=== PATIENT | female | born 1985 | race Caucasian/White ===

== ENCOUNTER 2016-12-23 16:59 | Outpatient (CLI) | payer OTHER ==
[~2016-12-23 16:59] MED LIST: CHOL100010 PO; PRENTAB26 PO
== END 2016-12-23 17:55 | disposition home or self-care (01) ==
LOC: C.LD 16:59 → C.OPB 16:59
PROVIDERS: ATTEND Obstetrics & Gynecology
DX: O36.8120 Decreased fetal movements, second trimester, not applicable or unspecified (principal); Z3A.27 27 weeks gestation of pregnancy

== ENCOUNTER → 2016-12-29 | Outpatient (CLI) | payer OTHER ==
[2016-12-29 11:19] LABS: HEMATOCRIT 37.5 % (37-47)
[2016-12-29 11:56] LABS: URINE APPEARANCE CLOUDY (CLEAR); URINE BILIRUBIN NEG (NEG); URINE COLOR YELLOW; URINE EPITHELIAL CELL AUTO >30 /lpf (0-5); URINE NITRITE NEG (NEG); URINE SPECIFIC GRAVITY 1.014 (1.000-1.030); UROBILINOGEN NEG (NEG)
[2016-12-29 12:28] LABS: MANUAL MICROSCOPIC REQUIRED? NO; REVIEW REQ? NO
[2016-12-29 12:58] LABS: GTGD 50 Grams
== END | disposition home or self-care (01) ==
LOC: C.LAB1850 09:56
PROVIDERS: ATTEND Obstetrics & Gynecology
DX: O09.03 Supervision of pregnancy with history of infertility, third trimester (principal)

== ENCOUNTER → 2017-01-03 | Outpatient (CLI) | payer OTHER | END | disposition home or self-care (01) | LOC: C.LAB 08:16 | PROVIDERS: ATTEND Obstetrics & Gynecology | DX: O28.1 Abnormal biochemical finding on antenatal screening of mother (principal) ==

== ENCOUNTER → 2017-02-23 | Outpatient (CLI) | payer OTHER | END | disposition home or self-care (01) | LOC: C.LABSPEC 13:02 | PROVIDERS: ATTEND Obstetrics & Gynecology | DX: O09.03 Supervision of pregnancy with history of infertility, third trimester (principal) ==

== ENCOUNTER 2017-03-15 00:44 | Inpatient (IN) | payer OTHER ==
[~2017-03-15] VITALS: Ht 172.7 cm; Wt 73.6 kg
[2017-03-15] MEDS ORDERED: LACTATED RINGER'S 1000ML 1,000 ML IV SCH (01:34)
[2017-03-15] MEDS ORDERED: LACTATED RINGER'S 1000ML 1,000 ML IV PRN (01:34)
[2017-03-15 01:40] VITALS: Ht 172.7 cm; Wt 73.6 kg
[2017-03-15] MEDS ORDERED: MISOPROSTOLTAB 50 MCG TAB PO STA (01:44)
[2017-03-15 01:52] LABS: HEMATOCRIT 36.6 % (37-47); MEAN CELL VOLUME 97.9 fL (80-100); MEAN CORPUSCULAR HEMOGLOBIN 34.8 pg (25-34); MEAN CORPUSCULAR HGB CONC 35.5 g/dl (32-36); PLATELET COUNT 203 K/uL (130-400); RED BLOOD COUNT 3.74 M/uL (4.2-5.4); WHITE BLOOD COUNT 11.23 K/uL (4.8-10.8)
[2017-03-15] MEDS ORDERED: BUPIVACAINE 0.25% 30 ML VIAL ONE (06:17)
[2017-03-15] MEDS ORDERED: FENTANYL CITRATE INJ 50 MCG/1 ML 2 ML VIAL ONE (06:17)
[2017-03-15] MEDS ORDERED: EpHEDrine SULFATE INJ 50 MG/ML AMP ONE (06:17)
[2017-03-15] MEDS ORDERED: FENTANYL 2MCG/ML ROPIV 1.25MG/ML 100ML BAG EPI ONE (06:17)
[2017-03-15] MEDS ORDERED: LACTATED RINGER'S 1000ML 500 ML IV PRN ×2 (07:23→07:44)
[2017-03-15] MEDS ORDERED: OXYTOCIN 30 UNITS/500ML NSS IV PRN ×2 (07:30→11:00)
[2017-03-15] MEDS ORDERED: NALOXONE HCL INJ 1 MG in SODIUM CHLORIDE 0.9% 1000ML 1,000 ML IV PRN (07:44)
[2017-03-15] MEDS ORDERED: NALOXONE HCL INJ 0.4 MG/1 ML VIAL/CARP IV PRN (07:45)
[2017-03-15] MEDS ORDERED: NALBUPHINE HCL INJ 10 MG/ML AMP IV PRN (07:45)
[2017-03-15] MEDS ORDERED: FENTANYL 2MCG/ML ROPIV 1.25MG/ML 100ML BAG EPI PRN (07:45)
[2017-03-15] MEDS ORDERED: DiphenhydrAMINE HCL 50 MG/ML VIAL IV PRN (07:45)
[2017-03-15] MEDS ORDERED: EpHEDrine SULFATE INJ 50 MG/ML AMP IV PRN (07:45)
[2017-03-15] MEDS ORDERED: SUPERCREAM 0.870 % 15GM JAR EXT PRN (11:00)
[2017-03-15] MEDS ORDERED: LANOLIN OINT EXT PRN ×2 (11:00)
[2017-03-15] MEDS ORDERED: ACETAMINOPHEN/CODEINE 300/30MG TAB PO PRN ×2 (11:00)
[2017-03-15] MEDS ORDERED: HYDROCORTISONE ACETATE 25 MG SUPP PR PRN (11:00)
[2017-03-15] MEDS: CEFAZOLIN IV 1,000 MG in DEXTROSE 5% 50ML 50 ML IV SCH ×2 (11:44→19:59)
--- NOTE | 2017-03-15 12:43 | Anesthesia Procedure Note ---
Anesthesia Epidural Removal Nt Date & Time Mar 15, 2017 at 12:41 Vital Signs Pain Intensity: 0.0 Notes Mental Status: alert / awake / arousable, participated in evaluation Nausea / Vomiting: adequately controlled Pain: adequately controlled Airway Patency, RR, SpO2: stable & adequate BP & HR: stable & adequate Hydration State: stable & adequate Neuraxial Anesthesia: was administered Anesthetic Complications: no major complications apparent, pt satisfied with anesthetic care Epidural: removed without complications, with tip intact
--- NOTE | 2017-03-15 13:38 | DELIVERY SUMMARY ---
DATE OF OPERATION: 03/15/2017 DELIVERING SURGEON: Dr. Lopez. PREDELIVERY DIAGNOSES: 1. A 32-year-old G3, P1-0-1-1 at 39 weeks 1 day. 2. Premature rupture of membranes. 3. resulting from in vitro fertilization. POSTDELIVERY DIAGNOSES: Same. PROCEDURE: Spontaneous vaginal delivery. ANESTHESIA: Epidural. ESTIMATED BLOOD LOSS: 300 mL. FINDINGS: Viable male with Apgars 8 and 9. Weight pending. DESCRIPTION OF DELIVERY: The patient progressed to complete with epidural anesthesia. She then spontaneously vaginally delivered a viable male in the left occiput anterior position. The head delivered and then restituted to right occiput anterior position. The anterior shoulder delivered, followed by the posterior shoulder, followed by the body. No nuchal cord was noted. The baby was placed on mother's abdomen where a spontaneous cry was heard. Delayed cord clamping was performed and after 1 minute, the cord was doubly clamped and cut. Cord blood was obtained. The perineum was inspected and a second degree perineal laceration was noted and repaired in standard fashion with 3-0 Vicryl. During attempt to vaginally deliver placenta, the placenta avulsed and therefore the remaining placental fragments removed via manual extraction. A sweep of the uterus and vagina revealed no remaining placental fragments or clots or debris. The placenta was sent to pathology for further evaluation. The uterus became firm. Pitocin was given. Excellent hemostasis was noted. Rectal exam revealed no stitches in the rectum. The patient and the baby tolerated the delivery well. I attest to the content of the Intraoperative Record and any orders documented therein. Any exceptions are noted below. MTDCharity
[2017-03-15 15:15] VITALS: BP 120/69; PULSE 67; TEMP 36.4
[2017-03-15] MEDS ORDERED: NURSING VERBAL MED ORDER ONE (15:30)
[2017-03-15] MEDS: BENZOCAINE 20% AER SPR 82.5 GM CAN EXT PRN (15:50)
[2017-03-15] MEDS ORDERED: IBUPROFEN 600 MG TAB ONE (15:50)
[2017-03-15] MEDS: DOCUSATE SODIUM 100 MG CAP PO SCH (19:59)
[2017-03-15] MEDS: IBUPROFEN 600 MG TAB PO PRN (19:59)
[2017-03-15 20:00] VITALS: BP 114/66; PULSE 61; TEMP 36.6
[2017-03-16 00:45] VITALS: BP 103/64; PULSE 62; TEMP 36.5
[2017-03-16] MEDS: IBUPROFEN 600 MG TAB PO PRN ×5 (00:58→20:14)
[2017-03-16] MEDS: CEFAZOLIN IV 1,000 MG in DEXTROSE 5% 50ML 50 ML IV SCH (03:46)
[2017-03-16 03:50] VITALS: BP 104/55; PULSE 58; TEMP 36.6
[2017-03-16 07:29] LABS: HEMATOCRIT 36.1 % (37-47)
[2017-03-16 08:00] VITALS: BP 109/64; PULSE 60; TEMP 36.4
[2017-03-16] MEDS: DOCUSATE SODIUM 100 MG CAP PO SCH ×2 (08:26→20:03)
--- NOTE | 2017-03-16 09:09 | Progress Note ---
Subjective Mar 16, 2017. Subjective conversation w/ patient, physical exam, lab review Ambulation: ambulating normally Voiding: no voiding problems Passing Gas: Yes Diet Tolerance: Regular Diet Lochia: Moderate Feeding Type: Breast Feeding Pain: denies pain Comment: Patient was seen at the bedside. No acute event overnight. Review of Systems Constitutional: No fever Respiratory: No cough, No shortness of breath Cardiac: No chest pain Breast: No breast lump Abdomen: No nausea, No pain Female : No dysuria Denies headache Objective Vital Signs Date Time Temp Pulse Resp B/P Pulse Ox O2 Delivery O2 Flow Rate FiO2 03/16/17 08:00 36.4 60 16 109/64 Room Air 03/16/17 03:50 36.6 58 18 104/55 Room Air 03/16/17 00:45 Room Air 03/16/17 00:45 36.5 62 20 103/64 Room Air 03/15/17 20:00 36.6 61 20 114/66 Room Air 03/15/17 15:15 36.4 67 20 120/69 Room Air 03/15/17 15:15 Room Air Physical Exam General Appearance: WELL-APPEARING, WD/WN, NO APPARENT DISTRESS Respiratory/Chest: chest non-tender, lungs clear, normal breath sounds Cardiovascular: regular rate, rhythm Abdomen: normal bowel sounds, non tender, soft Fundus: Firm, Relation to Umbilicus (1-2cm below) Extremities: non-tender, no pedal edema, no calf tenderness Laboratory Results Last 24 Hours Test 03/16/17 06:53 Hemoglobin 12.5 g/dL Hematocrit 36.1 % Medications Current Inpatient Medications Medications (Trade) Dose Ordered Sig/Attila Route Start Time Stop Time Status Last Admin Dose Admin Oxytocin (Pitocin IV) 30 units UD PRN IV 03/15/17 11:00 04/14/17 10:59 Benzocaine (Dermoplast Aero Spr) 1 appln PRN PRN EXT 03/15/17 11:00 04/14/17 10:59 03/15/17 15:50 82.5 APPLN Cocaine HCl (Supercream 0.870% Cr) BID PRN EXT 03/15/17 11:00 03/29/17 10:59 03/15/17 15:50 15 GM Hydrocortisone Acetate (Anusol Hc Supp) 25 mg BID PRN TX 03/15/17 11:00 04/14/17 10:59 Lanolin (Lanolin Oint) PRN PRN EXT 03/15/17 11:00 04/14/17 10:59 Acetaminophen/ Codeine Phosphate (Tylenol w/ Codeine #3 Tab) 1 tab Q4H PRN PO 03/15/17 11:00 04/14/17 10:59 Acetaminophen/ Codeine Phosphate (Tylenol w/ Codeine #3 Tab) 2 tab Q4H PRN PO 03/15/17 11:00 04/14/17 10:59 Bisacodyl (Dulcolax Tab) 5 mg 20 PO 03/16/17 20:00 03/16/17 23:59 Docusate Sodium 100 mg 100 mg BID PO 03/15/17 20:00 04/14/17 19:59 03/16/17 08:26 100 MG Cefazolin Sodium/ Dextrose (Ancef Iv/D5 50ml) 55 ml @ 100 mls/hr Q8H IV 03/15/17 12:00 03/16/17 11:59 03/16/17 03:46 100 MLS/HR Ibuprofen (Motrin Tab) 600 mg Q4H PRN PO 03/15/17 16:00 04/14/17 15:59 03/16/17 06:05 600 MG Assessment and Plan Post- Day#: 1 Continue Routine Care: A/P: This is a 32 y/o female, , s/p normal vaginal delivery. She is ambulating and clinically stable. Plan: - Vitals signs are reviewed and WNL (Tmax 36.6 ) - Last Hgb is 12.5 - Blood type A+, GBS neg, Rubella Immune - Routine care - Encourage ambulation, monitor and control pain with medication as needed , continue with regular diet as tolerated and monitor lochia - Stool softeners and sitz bath recommended - Encourage breast feeding and educate about breast feeding Resident Physician Supervision Note: I was present with Dr. Quinones during the history and exam. I discussed the case with the resident and agree with the findings and plan as documented in the note. Any exceptions or clarifications are listed here: PPD#1 . Doing well. Anticipate DC home tomorrow. Documented By: Angélica Lopez
[2017-03-16 15:45] VITALS: BP 116/65; TEMP 36.7
[2017-03-16] MEDS ORDERED: BISACODYL 5 MG TABEC PO SCH (20:00)
[2017-03-16 23:00] VITALS: BP 115/61; PULSE 62; TEMP 36.7; O2SAT 97
--- NOTE | 2017-03-17 06:35 | Discharge Instructions ---
Discharge Instructions Date of Service Mar 15, 2017. Admission Reason for Admission: LABOR Discharge Discharge Diagnosis / Problem: s/p normal vaginal delivery Discharge Goals Goal(s): Routine recovery after delivery Medications Continue Dispensed Medications: supercream, dermaplast, tucks, lansinoh Activity Recommendations Activity Limitations: as noted below . Instructions / Follow-Up Instructions / Follow-Up ACTIVITY RECOMMENDATIONS: * Gradual return to full activity over the next 2-3 weeks. * No lifting - nothing heavier than baby over the next 2-3 weeks. * Do not engage in vigorous exercise, sexual activity or sports until cleared by your physician. * Do not drive or operate any motorized equipment until cleared by your physician. * You may shower/bathe daily. MEDICATIONS: For discomfort or pain, you may use Acetaminophen (Tylenol), Ibuprofen (Advil), or Naproxen (Aleve) following the package directions. For constipation you may use Colace following the package directions. BREAST CARE: If you are not breast feeding: * Wear a supportive bra 24 hours a day for one to two weeks. * Avoid stimulating your breasts and nipples as much as possible during the first few weeks after delivery. * When taking a shower, have the warm water hit your back, not breasts. * When your breasts feel full, apply ice packs. Usually three to four times a day helps ease the discomfort. * Take a mild pain medication (Tylenol / Motrin) when you are uncomfortable. If breast feeding: * Use breast milk to lubricate nipples. Lansinoh cream may be used for sore nipples. You do not need to remove cream prior to breast feeding. If using a different brand of cream, check the label for directions regarding removal of cream prior to nursing. * Wear a supportive bra. * If having problems with breasts or breast feeding, call a clothing consultant or your health care provider. EPISIOTOMY CARE: After delivery, if you have an episiotomy (stitches), the following steps will ease discomfort and aid healing. * For the first 24 hours after delivery, place ice packs next to your episiotomy to help reduce swelling. * After the first 24 hour-period, sitz baths, either portable or in the tub, are suggested. A shower with a shower arm sprayed over the episiotomy may be comforting. * Jody care should be done after each voiding and bowel movement. Squirt warm water from a plastic bottle over the perineum (region of the body between the anus and urinary opening) and pat dry. * Use Dermoplast to ease discomfort. Shake container. [place] directly over the episiotomy. Place a Tucks on a clean sanitary pad next to your episiotomy. SPECIAL CARE INSTRUCTIONS: When you are discharged from the hospital, it is important for you to follow the instructions listed below: * During the first week at home, you should be able to care for yourself and your baby. In addition, the usual light household activities are encouraged. * Limit your activities to the way you feel. Do not try to clean the house or move furniture. Be sensible. * If you actively engage in sports and have done so up until the time of your delivery, you may resume these activities as soon as you feel able. This may take up to one month or even longer. Use good judgment. * Continue to take your vitamins for at least six weeks after the of your baby. * Your diet need not be limited unless you were on a special diet before your delivery. Breast-feeding mothers need around 2500 calories per day and at least 64-80 ounces of fluid per day (8 to 10 glasses). * You should eat foods from the four major food groups. Crash diets or fad diets are to be avoided. Eating lean meats, fresh fruits and vegetables, low-fat dairy products, high fiber foods and a regular exercise program, will help you get back to your pre- weight without putting your health at risk. * Constipation is sometimes a problem after delivery. Take a mild laxative as needed. If breast feeding, Milk of Magnesia is acceptable to use. You may use a suppository or Fleets enema if no episiotomy. * A daily shower or tub bath is suggested. Be sure to thoroughly and gently dry the perineum. * A bloody vaginal discharge will usually continue until around four weeks post . A small amount of bleeding may continue for as long as six weeks. Vaginal discharge changes from the bright red bleeding after delivery to pink then brownish and finally yellowish-pink before becoming white and disappearing. * Bleeding may increase with activity. Your first period may come in 4-8 weeks. If you are breast feeding, your period may be delayed even longer. * [place] (sex) can begin whenever both you and your partner feel comfortable and do not have any form of genital infection. It is recommended that you wait at least six weeks for internal and external healing to occur. If you have questions, please talk to your health care practitioner. A condom should be used to prevent infection and . * Foreplay, gentle intercourse and lubrication is very important the first several times to prevent pain. A water-based lubricant such as K-Y jelly or Astroglide may be used. * If you have RH negative blood and your baby is RH positive, you will receive RHOGAM by injection prior to discharge. The nurse will give you a card to keep with you that has the date and place that you received RHOGAM after delivery. * During your care, you had a Rubella screen done to check for the presence of rubella antibodies in your blood. If your test was negative, you will receive a Rubella vaccine prior to discharge. This vaccine may cause a fever, soreness at the injection site and flu-like symptoms. If these symptoms persist, notify your health care practitioner. is not advised for one month after a Rubella vaccine. * Verbalizes understanding of car seat law as reviewed with patient nursing. * Car Seat hand-out given and reviewed with patient by nursing. * Shaken baby information reviewed with patient by nursing. Call you doctor if: * Heavy bleeding (saturating several pads an hour) or passing clots the size of your fist. * A fever >101 degrees F (38.3 degrees C) on two occasions four hours apart and /or chills. * Unusual pain in the pelvic or vaginal areas. * "Baby Blues" lasting longer than two weeks. If you have any questions or concerns, call your health care practitioner at . FOLLOW UP VISIT: * Please call the office at to schedule a 6 week examination. It is important you keep this appointment. It is important for you to make arrangements for either yearly or twice yearly check-ups thereafter. Current Hospital Diet Patient's current hospital diet: Regular OB Diet Discharge Diet Recommended Diet: Regular Diet Pending Studies Studies pending at discharge: no Medical Emergencies . Who to Call and When: Medical Emergencies: If at any time you feel your situation is an emergency, please call [phone] immediately. . Non-Emergent Contact Non-Emergency issues call your: Agricultural Sciences Professor Call Non-Emergent contact if: you have a fever, temperature is above 101 . . "Provider Documentation" section prepared by Marisa Quinones. . VTE Core Measure Inpt VTE Proph given/why not?: Treatment not indicated
--- NOTE | 2017-03-17 06:37 | Progress Note ---
Subjective Mar 17, 2017. Subjective conversation w/ patient, physical exam, lab review Ambulation: ambulating normally Voiding: no voiding problems Passing Gas: Yes Diet Tolerance: Regular Diet Lochia: Small Feeding Type: Breast Feeding Pain: 1/10 improves with medication Comment: Patient was seen at the bedside. No acute event overnight. Review of Systems Constitutional: No fever Respiratory: No shortness of breath Cardiac: No chest pain Breast: No breast lump Abdomen: No nausea, No pain, No vomiting Female : No dysuria Denies headache Objective Vital Signs Date Time Temp Pulse Resp B/P Pulse Ox O2 Delivery O2 Flow Rate FiO2 03/16/17 23:00 36.7 62 18 115/61 97 Room Air 03/16/17 23:00 Room Air 03/16/17 15:45 36.7 18 116/65 Room Air 03/16/17 15:45 Room Air 03/16/17 08:25 Room Air 03/16/17 08:00 36.4 60 16 109/64 Room Air Physical Exam General Appearance: WELL-APPEARING, WD/WN, NO APPARENT DISTRESS Respiratory/Chest: chest non-tender, lungs clear, normal breath sounds Cardiovascular: regular rate, rhythm Abdomen: normal bowel sounds, non tender, soft Fundus: Firm, Relation to Umbilicus (1 cm below) Extremities: non-tender, no pedal edema, no calf tenderness Laboratory Results Last 24 Hours Test 03/16/17 06:53 Hemoglobin 12.5 g/dL Hematocrit 36.1 % Medications Current Inpatient Medications Medications (Trade) Dose Ordered Sig/Attila Route Start Time Stop Time Status Last Admin Dose Admin Oxytocin (Pitocin IV) 30 units UD PRN IV 03/15/17 11:00 04/14/17 10:59 Benzocaine (Dermoplast Aero Spr) 1 appln PRN PRN EXT 03/15/17 11:00 04/14/17 10:59 03/15/17 15:50 82.5 APPLN Cocaine HCl (Supercream 0.870% Cr) BID PRN EXT 03/15/17 11:00 03/29/17 10:59 03/15/17 15:50 15 GM Hydrocortisone Acetate (Anusol Hc Supp) 25 mg BID PRN [place] 03/15/17 11:00 04/14/17 10:59 Lanolin (Lanolin Oint) PRN PRN EXT 03/15/17 11:00 04/14/17 10:59 Acetaminophen/ Codeine Phosphate (Tylenol w/ Codeine #3 Tab) 1 tab Q4H PRN PO 03/15/17 11:00 04/14/17 10:59 Acetaminophen/ Codeine Phosphate (Tylenol w/ Codeine #3 Tab) 2 tab Q4H PRN PO 03/15/17 11:00 04/14/17 10:59 Docusate Sodium (coLACE CAP) 100 mg BID PO 03/15/17 20:00 04/14/17 19:59 03/16/17 20:03 100 MG Ibuprofen (Motrin Tab) 600 mg Q4H PRN PO 03/15/17 16:00 04/14/17 15:59 03/16/17 20:14 600 MG Assessment and Plan Post- Day#: 2 Continue Routine Care: A/P: This is a 32 y/o female, , s/p normal vaginal delivery. She is ambulating and clinically stable to discharge. - Vital signs are reviewed and WNL (Tmax 36.7 ) - Last Hgb 12.5 - Blood type A+, GBS neg, Rubella Immune - No signs of depression. - Routine care - Discussed resting, feeding, pain control, mastitis, control, follow up in 6 weeks and reasons to call sooner, if necessary. - Continue with pain medication as needed, and continue vitamins. - Encourage breast feeding and educate about breast feeding - Patient understands and keen for home. - Plan to discharge home Resident Physician Supervision Note: I was present with Dr. Antoine during the history and exam. I discussed the case with the resident and agree with the findings and plan as documented in the note. Any exceptions or clarifications are listed here: doing well, ready for d /c home. instructions reviewed. f/u 6wks pp check Documented By: Kristen Griffin
[2017-03-17] MEDS ORDERED: PRENATAL VITAMIN TAB PO ONE (06:45)
[2017-03-17 08:20] VITALS: BP 114/71; PULSE 62; TEMP 36.9
[2017-03-17] MEDS: BENZOCAINE 20% AER SPR 82.5 GM CAN EXT PRN (09:29)
[2017-03-17] MEDS: DOCUSATE SODIUM 100 MG CAP PO SCH (09:29)
[2017-03-17] MEDS: IBUPROFEN 600 MG TAB PO PRN (09:29)
[2017-03-17 11:30] VITALS: BP_DIAS 71; PULSE 62; TEMP 36.9
== END 2017-03-17 11:50 | disposition home or self-care (01) | DRG 775 ==
LOC: C.OPB 00:44 → C.LD 00:44 → C.OPB 01:36 → C.LD 01:36 → C.OBG 17:02 → EDSTATUS 03-21 00:43
PROVIDERS: ADMIT Obstetrics & Gynecology; ATTEND Obstetrics & Gynecology
PROC: 10E0XZZ Delivery of Products of Conception, External Approach (ICD-10-PCS; principal; 2017-03-15)
PROC: 0KQM0ZZ Repair Perineum Muscle, Open Approach (ICD-10-PCS; principal; 2017-03-15)
DX: O42.02 Full-term premature rupture of membranes, onset of labor within 24 hours of rupture (principal); Z37.0 Single live birth; O26.893 Other specified pregnancy related conditions, third trimester; O43.893 Other placental disorders, third trimester; O70.1 Second degree perineal laceration during delivery; Z3A.39 39 weeks gestation of pregnancy

== ENCOUNTER → 2018-04-13 | Outpatient (CLI) | payer OTHER ==
--- NOTE | 2018-04-13 09:57 | DIAGNOSTIC IMAGING REPORT ---
HYSTEROSALPINGOGRAM HISTORY: Infertility. FLUOROSCOPY TIME: 0.5 minutes. 5 fluoroscopic spot images obtained.. TECHNIQUE: The cervix was cannulated by the rn med surg-dividing machine operator and water soluble contrast was instilled into the uterus under fluoroscopic guidance. Multiple spot images were obtained. FINDINGS: The uterine cavity is normal in size, shape, and position. The fallopian tubes are patent and there is free peritoneal spill bilaterally. IMPRESSION: Normal hysterosalpingogram. Electronically signed by: Mello Rioc M.D. 04/13/2018 9:56 AM Dictated Date/Time: 04/13/2018 9:55 AM
--- NOTE | 2018-04-13 10:10 | Procedure Note: [facility] Only ---
Procedure Note Date of Service April 13, 2018. Procedure Procedure: Hysterosalpingogram Indications for procedure: Patient is a 33-year-old 012 who was undergoing fertility workup with Wilmer Philippe, was recommended to have hysterosalpingogram. Findings: Normal appearing uterus with normal cavity, positive bilateral tubal spill of dye. Normal study. Complications: None Description of procedure: The procedure was discussed, all questions were answered, and patient consented to procedure. She was positioned comfortably on the x-ray table, a speculum was placed in the vagina, cervix was visualized, the cervix vagina were swabbed with Betadine. A single-tooth tenaculum was used to grasp the anterior lip of the cervix, and the acorn uterine manipulator was placed in the cervix. The patient was repositioned on the table, and radiopaque dye was injected and x-ray pictures were taken. Following the procedure, all instruments were removed from the vagina, excellent hemostasis was observed, the patient tolerated procedure well. I reviewed the images with the patient, and we will forward results to Wilmer Philippe. The patient was counseled on potential complications and is to call if she develops fever, chills, severe pain, vaginal bleeding.
== END | disposition home or self-care (01) ==
LOC: C.RAD 09:22
PROVIDERS: ATTEND Obstetrics & Gynecology
DX: Z31.41 Encounter for fertility testing (principal)

== ENCOUNTER → 2018-07-02 | Outpatient (CLI) | payer OTHER | END | disposition home or self-care (01) | LOC: C.LAB1850 09:46 | PROVIDERS: ATTEND Specialist | DX: Z31.41 Encounter for fertility testing (principal) ==

== ENCOUNTER 2019-03-10 18:26 | Inpatient (IN) ==
[2019-03-10] MEDS ORDERED: OXYTOCIN 30 UNITS/500 ML BAG IV PRN ×2 (19:47)
[2019-03-10] MEDS ORDERED: LACTATED RINGER'S 1,000 ML IV PRN ×2 (19:47)
[2019-03-10 20:10] LABS: Hemoglobin 12.7 g/dL (12.0-16.0); Mean Corpuscular Volume 97.8 fL (80-100); Mean Platelet Volume 11.8 fL (7.4-10.4); Platelet Count 187 K/uL (130-400); RDW Coefficient of Variation 12.5 % (11.5-14.5); RDW Standard Deviation 43.9 fL (36.4-46.3); Red Blood Count 3.68 M/uL (4.2-5.4); White Blood Count 11.24 K/uL (4.8-10.8)
[2019-03-10 20:12] LABS: Mean Corpuscular Hgb Conc 35.3 g/dL (32-36)
--- NOTE | 2019-03-10 20:16 | History & Physical Report ---
Date of Service March 10, 2019 Assessment & Plan (1) 37 weeks gestation of : (2) PROM (premature rupture of membranes): admit, iv, labs. fhts categ 1. will see if labor pattern improves and add pit if needed. History of Present Illness Chief Complaint: cc: leaking fluid since 5pm, clear. Primary Care Provider: NO PCP 34yo at 37 4/7 wks ega presents with above cc. No vb. +FM. Since rom, feeling more ctx. PNC c/b 1. AMA 2. IVF --nl echo except EIF PNL rh pos, ri, gbs neg OBH: x 2, sab x 1 GYNH: nl paps, no stds PMH: neg PSH: wisdom teeth, microdiscectomy Allg: latex Meds: pnv, dha, tums SH: no tob/etoh/drugs FH: no wero anom or mr Allergies Allergy/AdvReac Type Severity Reaction Status Date / Time latex Allergy Unknown RASHES Verified 03/15/17 01:43 Home Medications Home Medications Medication Instructions Recorded Confirmed Type vit no.[id number] 1 tab PO HS 03/10/19 03/10/19 History [ Vitamin] Patient History Medical History H/O wisdom tooth extraction (~09/11/04) Surgical History H/O microdiscectomy (~10/07/01) Social History Communication Ability: Effective Beliefs That Will Affect Care: None marital status: Current Living Situation: Spouse and Family Current Living Situation Comment: Lives with and 2 sons Other Information That Helps Us Care for You: No Feels Safe at Home: Yes Safety Concerns: Feels Safe At This Time Smoking Status: Never smoker Do You Dip or Chew Tobacco: No Second Hand Exposure: No Tobacco Cessation Education Requested by Patient: No Hx Alcohol Use: No Hx Substance Use: No Physical Exam Vital Signs (Past 24 Hours): Last Vital Signs Temp 98.2 F 03/10/19 18:54 Pulse 80 03/10/19 19:26 Resp 20 03/10/19 18:54 BP 132/69 03/10/19 19:26 Constitutional: WD/WN, vitals as above Respiratory: normal respiratory effort, lungs clear to auscultation Cardiovascular: RRR, no murmur, no edema Gastrointestinal (Abdomen): gravid nt Musculoskeletal: nt calves Neurologic: grossly normal Genitourinary: OB Exam Abdomen: + estimated weight (6-7#) Manual OB Exam: + cervical dilation (1+), + cervical effacement 50%, + station -1 and + amniotic fluid clear OB Exam Monitor Tracing: + external FHT monitor used (reactive), + external uterine monitor used (irreg) and + category I
[2019-03-10] MEDS ORDERED: CALCIUM CARBONATE 500 MG CHEWABLE TAB PO PRN (20:31)
[2019-03-10] MEDS: LACTATED RINGER'S 1,000 ML IV SCH (22:20)
[2019-03-11] MEDS ORDERED: BUPIVACAINE 0.25% 30 ML VIAL ONE (02:50)
[2019-03-11] MEDS ORDERED: ePHEDrine sulfate 50 MG/ML AMP ONE (02:51)
[2019-03-11] MEDS ORDERED: fentaNYL citrate 100 MCG/2 ML VIAL ONE (02:51)
[2019-03-11] MEDS ORDERED: fentaNYL 2MCG/ML ROPIV 1.25MG/ML 100 ML BAG EPI ONE (02:51)
[2019-03-11] MEDS: LACTATED RINGER'S 1,000 ML IV SCH (03:01)
--- NOTE | 2019-03-11 03:03 | Anesthesiology Consultation ---
Date of Service March 11, 2019 Assessment & Plan (1) Encounter for pre-operative examination: Chart Review Chart Review: Acceptable Risk for Surgery Consults Requested none ASA ASA2 Proposed Anesthesia Anesthesia Type: Labor Epidural Risk / Benefits Reviewed With: PT / POA / Parent / Guardian, Accepts Plan and Informed Consent Obtained History Height/Weight Height: 5 ft 8 in Weight: 73.482 kg Allergies Allergy/AdvReac Type Severity Reaction Status Date / Time latex Allergy Unknown RASHES Verified 03/15/17 01:43 Medications Home Medications Medication Instructions Recorded Confirmed Last Taken vit no.095-[id number] 1 tab PO HS 03/10/19 03/10/19 03/09/19 22:00 [ Vitamin] Active Medications Generic Name Dose Route Start Last Admin Trade Name Freq PRN Reason Stop Dose Admin Calcium Carbonate 500 mg 03/10/19 20:31 03/11/19 00:45 Tums PO 04/09/19 20:30 500 mg Q4 PRN Administration Indigestion Lactated Ringer's 1,000 mls @ 125 mls/hr 03/10/19 20:00 03/10/19 22:20 Lr IV 03/12/19 19:59 125 mls/hr .Q8H ARLINE Administration Oxytocin 30 units in 500 mls @ 13 mls/hr 03/10/19 19:47 03/11/19 01:42 Pitocin IV 03/12/19 19:46 0.78 units/hr .Q24H PRN 13 mls/hr Labor Induction/Augmentation Titration Protocol 0.78 UNITS/HR Past Medical History Medical History Conceived by in vitro fertilization H/O wisdom tooth extraction (~09/11/04) Spontaneous 2014 Past Surgical History Surgical History H/O microdiscectomy (~10/07/01) Past Anesthesia History No Hx of Anesthesia Complications and No Family Hx of Anesthesia Complications History of PONV No Motion Sickness Screening History of Motion Sickness: No Social History Smoking Status: Never smoker Do You Dip or Chew Tobacco: No Hx Alcohol Use: No Hx Substance Use: No Exercise / Class Metabolic Activity II 4-5 Yardwork/Stairs/Walk up hill Physical Exam Vital Signs Last Vital Signs Temp 97.7 F 03/11/19 00:28 Pulse 85 03/11/19 02:58 Resp 18 03/11/19 02:30 BP 147/71 H 03/11/19 02:58 ENMT Mouth: no dentition abnormality Thyromental Distance: > or= 3.5 Finger Breadths Mallampati Class: II Neck normal visual inspection Respiratory normal respiratory effort Auscultation: lungs clear to auscultation bilaterally Cardiovascular Rate/Rhythm: regular rate and regular rhythm Testing Laboratory Results 03/10/19 20:00
[2019-03-11] MEDS ORDERED: ePHEDrine sulfate 50 MG/ML AMP IV PRN (03:26)
[2019-03-11] MEDS ORDERED: NALBUPHINE HCL INJ 10 MG/ML AMP IV PRN (03:26)
[2019-03-11] MEDS ORDERED: fentaNYL 2MCG/ML ROPIV 1.25MG/ML 100 ML BAG EPI PRN (03:26)
[2019-03-11] MEDS ORDERED: LACTATED RINGER'S 1,000 ML IV PRN (03:26)
[2019-03-11] MEDS ORDERED: ONDANSETRON INJ 2 MG/ML 2 ML VIAL IV PRN (03:26)
[2019-03-11] MEDS ORDERED: NALOXONE HCL 0.4 MG/1 ML VIAL/CARP IV PRN (03:26)
[2019-03-11] MEDS ORDERED: DiphenhydrAMINE HCL 50 MG/ML VIAL IV PRN (03:26)
[2019-03-11] MEDS ORDERED: NALOXONE HCL 1 MG in SODIUM CHLORIDE 0.9% 1000ML 1,000 ML IV PRN (03:26)
--- NOTE | 2019-03-11 06:35 | Delivery Summary ---
DATE OF OPERATION: 03/11/2019 The patient dilated to complete and pushed to deliver a viable female infant, Apgars 8 and 9 via over a second-degree perineal laceration. Mouth and nose bulb suctioned at the perineum. The shoulders and body delivered with ease. The is vigorous and crying at . Cord clamped and infant to maternal abdomen where the cord was then doubly clamped and cut. Cervix and sulci intact. Laceration repaired in usual fashion using 3-0 Vicryl. Placenta was delivered spontaneously and intact, 3-vessel cord. Hemostasis achieved with dilute Pitocin and uterine massage. Bladder drained under sterile conditions for 200 mL. EBL 300 mL. Mother and baby stable in recovery. I attest to the content of the Intraoperative Record and any orders documented therein. Any exceptions are noted below. MTDD
[2019-03-11] MEDS ORDERED: ACETAMINOPHEN 325 MG TAB PO PRN (08:32)
[2019-03-11] MEDS ORDERED: DIPHTHERIA/TETANUS/PERTUSSIS 0.5 ML SYR/VIAL IM ONE (08:32)
[2019-03-11] MEDS ORDERED: HYDROCORTISONE ACETATE 25 MG SUPP PR PRN (08:32)
[2019-03-11] MEDS ORDERED: SUPERCREAM 0.870% 15 GM JAR EXT PRN (08:32)
[2019-03-11] MEDS ORDERED: BENZOCAINE 20% AER SPR 82.5 GM CAN EXT PRN (08:32)
[2019-03-11] MEDS ORDERED: OXYTOCIN 30 UNITS/500 ML BAG IV PRN (08:32)
[2019-03-11] MEDS ORDERED: OXYCODONE/ACETAMINOPHEN 5mg/325mg TAB PO PRN (08:32)
--- NOTE | 2019-03-11 08:32 | Anesthesia Procedure Note ---
Date of Service March 11, 2019 Anesthesia Post Epidural Note Vital Signs Vital Signs: Temp Pulse Resp BP Pulse Ox 37.0 C 77 18 123/59 L 94 03/11/19 05:26 03/11/19 08:30 03/11/19 06:52 03/11/19 08:30 03/11/19 06:27 Pain Intensity Right Abdomen: Pain Intensity: 0 Notes Mental Status: alert / awake / arousable and participated in evaluation Nausea / Vomiting: adequately controlled Pain: adequately controlled Airway Patency, RR, SpO2: stable & adequate BP & HR: stable & adequate Hydration State: stable & adequate Neuraxial Anesthesia: was administered and sensory block is resolving Anesthetic Complications: no major complications apparent and Pt Satisfied with anesthetic care Epidural: Removed without complications and With tip intact
[2019-03-11] MEDS ORDERED: DOCUSATE SODIUM 100 MG CAP ONE (08:37)
[2019-03-11] MEDS ORDERED: IBUPROFEN 600 MG TAB PO ONE (08:37)
[2019-03-11] MEDS ORDERED: OXYTOCIN 20 UNITS in LACTATED RINGER'S 1,000 ML IV SCH (08:45)
[2019-03-11] MEDS: IBUPROFEN 600 MG TAB PO PRN ×2 (13:00→19:09)
[2019-03-11] MEDS: DOCUSATE SODIUM 100 MG CAP PO SCH (19:10)
[2019-03-12] MEDS: IBUPROFEN 600 MG TAB PO PRN ×3 (03:17→12:58)
--- NOTE | 2019-03-12 07:32 | Obstetrical Progress Note ---
Date of Service March 12, 2019 Assessment & Plan (1) state: Recovering well, may be interested in discharge home today. Present on Admission?: No Subjective Ambulation: ambulating normally Voiding: no voiding problems Passing Gas:: Yes Diet Tolerance:: regular diet Lochia:: Small Feeding Type:: breast feeding Physical Exam Vital Signs (Past 24 Hours) Last Vital Signs Temp 36.4 C L 03/12/19 03:35 Pulse 84 03/12/19 03:35 Resp 18 03/12/19 03:35 BP 113/58 L 03/12/19 03:35 Pulse Ox 98 03/11/19 11:00 Constitutional WD/WN, vitals as above Eyes PERRL, conjunctivae normal, anicteric sclerae Neck normal visual inspection Respiratory normal respiratory effort, lungs clear to auscultation Cardiovascular RRR, no murmur, no edema Chest (Breasts) Chest: normal inspection of chest Gastrointestinal (Abdomen) Inspection/Auscultation: abdomen normal to inspection Soft, postgravid Musculoskeletal No significant pedal edema Psychiatric A+Ox3, euthymic affect Genitourinary OB Exam Abdomen: + fundal height Fundus: + firm; not tender Fundus just below umbilicus
[2019-03-12] MEDS: DOCUSATE SODIUM 100 MG CAP PO SCH (08:59)
[2019-03-12 11:46] VITALS: BP 125/78; TEMP 97.5; O2SAT 97
[2019-03-12 11:47] VITALS: PULSE 76
== END 2019-03-12 14:00 | disposition home or self-care (01) | DRG 807 ==
LOC: OPB 18:26 → 4S1 18:27 → 4S2 03-11 12:29